=== PATIENT | female | born 1995 | race Caucasian/White ===

== ENCOUNTER → 2019-09-07 | Outpatient (CLI) | payer OTHER ==
[2019-09-07 12:57] LABS: Basophils % (A) 1 %; Eosinophils % (A) 1 %; HCT 41.8 % (34.0-46.0); HGB 13.7 gm/dL (11.4-16.0); Lymphocytes % (A) 39 %; MCH 28.9 pg (25.0-35.0); MCHC 32.9 g/dL (31.0-37.0); MCV 87.9 fL (80.0-100.0); Mean Platelet Volume 7.6; Monocytes # (A) 0.3 k/uL (0-1.0); Monocytes % (A) 6 %; Neutrophils # (A) 2.7 k/uL (1.3-7.7); Neutrophils % (A) 52 %; Platelet Count 205 k/uL (150-450); RBC 4.75 m/uL (3.80-5.40); RDW 12.2 % (11.5-15.5); WBC 5.2 k/uL (3.8-10.6)
== END | disposition home or self-care (01) ==
LOC: LABWHC1 11:43
PROVIDERS: ATTEND Obstetrics & Gynecology Obstetrics
DX: Z01.818 Encounter for other preprocedural examination (principal); Q52.3 Imperforate hymen
CPT/HCPCS: 85025

== ENCOUNTER → 2019-10-02 | Day surgery (SDC) | payer OTHER ==
[2019-09-25 15:51] VITALS: BMI 19.4
[~2019-10-02] MED LIST: DEXAMETHASONE SOD PHOSPHATE 10 MG/ML 1 ML VIAL IV ONE; ESTROGENS, CONJUGATED 0.625 MG/GM VAGINAL CREAM 42.5 GM TUBE VAGINAL ONE; HYDROmorphone 0.5 MG/0.5 ML SYRINGE IVP PRN; KETOROLAC 30 MG/ML 1 ML VIAL ONE; LACTATED RINGERS 1,000 ML IV SCH; LIDOCAINE 1% (10MG/ML) FOR IV START INTRADERMA ONE; LIDOCAINE 1% INJ 10MG/ML (20 ML MDV) ONE; MIDAZOLAM 2 MG/2 ML VIAL IV PRN; MIDAZOLAM 2 MG/2 ML VIAL ONE; ONDANSETRON 4 MG/2 ML VIAL IVP ONE; ONDANSETRON 4 MG/2 ML VIAL ONE; PROPOFOL 10 MG/ML 20 ML VIAL IV ONE; Pre Op ABX Message 1 EACH MISC MISCELLANE ONE; SCOPOLAMINE 1.5MG/72HR PATCH TRANSDERM ONE; SILVER NITRATE APPLICATOR 1 EACH STICK..EA. TOPICAL ONE; fentaNYL (PF) 50 MCG/ML 2 ML AMP ONE
--- NOTE | 2019-10-02 09:36 | P.OP ---
Date of Procedure: 10/02/19 Preoperative Diagnosis: Hymenal defect Postoperative Diagnosis: Same Procedure(s) Performed: Hymenectomy, exam under anesthesia, Pap smear Anesthesia: MAC Surgeon: Annamarie Das Estimated Blood Loss (ml): 5 IV fluids (ml): 200 Urine output (ml): 50 Pathology: none sent Condition: stable Disposition: PACU Indications for Procedure: Hymenal defect, inability to have intercourse, place tampon in vagina Operative Findings: Hymenal defect just below urethra to left vaginal sidewall. Normal vaginal mucosa is noted, cervix appears healthy with no lesions or masses. Description of Procedure: Patient is seen in the preoperative area surgery is reviewed once again and questions are answered. Patient taken back to the operating suite where general anesthesia was obtained without difficulty by the anesthesia department. She is prepped and draped in the normal sterile fashion in the dorsal lithotomy position. Red rubber catheter was used to drain the bladder of clear yellow urine. The hymenal defect was identified and grasped with Allis clamps it is transected with Metzenbaum scissors speculum was then placed and a Pap smear was obtained. The vaginal mucosa was noted to be pink and well rugated. The lateral vaginal attachement site was then closed with 3-0 Rapide in a running locked fashion. [id number] suture was used to close the anterior site. Hemostasis was appreciated. Primary cream was placed over both sites. All counts reported to be correct 2, patient tolerated procedure well.
[2019-10-02 09:48] VITALS: TEMP 97.6
[2019-10-02 10:43] VITALS: RESP 20
[2019-10-02 10:46] VITALS: BP 101/53; PULSE 53
== END ==
LOC: OR 07:39
PROVIDERS: ATTEND Obstetrics & Gynecology Obstetrics
DX: Q52.3 Imperforate hymen (principal); K59.00 Constipation, unspecified; Z98.818 Other dental procedure status; Z82.3 Family history of stroke
CPT/HCPCS: 81025; 56700; J2250; J1100; J2405; J2001; J3010; J1885; J2704

== ENCOUNTER → 2021-04-08 | Outpatient (CLI) | payer OTHER ==
--- NOTE | 2021-04-08 10:55 | USB ---
Reason for exam: clinical finding. Physical Findings: Nurse Summary: increased density and nodularity at areas of concern (nurse db). US Breast Limited BILAT Right limited breast ultrasound including focal area of concern, retroareolar and axilla demonstrates a 1.2 x 1.4 x 0.6cm solid, hypoechoic lesion at 10 o'clock and a 1.3 x 0.8 x 0.5cm, cortex 0.2cm normal lymph node at the axilla. Left limited breast ultrasound including focal area of concern, retroareolar and axilla demonstrates a 1.6 x 1.7 x 1.2cm solid, hypoechoic lesion at 10 o'clock. Both lesions show posterior thru transmission, fibroadenomas are suspected. Scanned right breast 9-12 o'clock and left breast 9-12 o'clock. These results were verbally communicated with the patient and result sheet given to the patient on 04/08/21. ASSESSMENT: Suspicious, BI-RAD 4 RECOMMENDATION: Ultrasound core biopsy of both breasts. Called Dr. Rios's office with mammographic findings and has scheduled an appointment for the patient for 05/16/21 at 2:[address] Garcia. Biopsy scheduled for 05/19/21 at 1:00. PRELIMINARY REPORT CALLED AND FAXED TO DR. GARCIA ON 04/08/21.
== END | disposition home or self-care (01) ==
LOC: RADUSWWP 09:30
PROVIDERS: ATTEND Family Medicine
DX: N63.0 Unspecified lump in unspecified breast (principal)

== ENCOUNTER → 2021-05-16 | Outpatient (CLI) | payer OTHER ==
[2021-05-16 14:08] VITALS: BP 124/76; PULSE 88; RESP 16; TEMP 98.6
--- NOTE | 2021-05-16 14:37 | P.GSHP ---
History of Present Illness H&P Date: 05/16/21 Chief Complaint: bilateral abnormal ultrasound of the breast Kiara is a 25 year old white female seen in consultation for Dr. aDs bilateral breast lumps. She noticed a fullness in her breast which led to the ultrasound. She underwent a bilateral breast ultrasound on . This revealed in the right breast a 1.4 x 1.2 cm solid lesion at 10:00 and in the left breast a 1.6 x 1.7 cm solid lesion at 10:00. These are tender with palpation. These change in size with her period. She has not noted any nipple discharge skin changes or other lesions or masses in her breast. She's never had any surgery on her breast. She is not complaining of any recent trauma or infection of the breast. Caffeine:none nicotine: none chocolate: daily BCP: never used hormones: none Family history: Paternal grandmother; ovarian cancer, leukemia Paternal aunt: colon cancer maternal grandfather: throat cancer Hormonal History: menarche: 14 G0; not sexually active BCP: none periods regular Surgical History: hymenectomy Medical History: None Social history: nicotine: negative Alcohol: Negative Drugs: Negative - Constitutional Constitutional: Denies chills, Denies fever - EENT Eyes: denies blurred vision, denies pain Ears: bilateral: tinnitus, deny: decreased hearing Ears, nose, mouth and throat: Denies headache, Denies sore throat - Breasts Breasts: bilateral: as per HPI - Cardiovascular Cardiovascular: Reports chest pain, Denies shortness of breath - Respiratory Respiratory: Denies cough, Denies 7 - Gastrointestinal Gastrointestinal: Denies abdominal pain, Denies diarrhea, Denies nausea, Denies vomiting - Genitourinary (Female) Genitourinary: Denies dysuria, Denies hematuria - Menstruation Menstruation: Reports period normal - Musculoskeletal Musculoskeletal: Denies myalgias - Integumentary Comment: eczema on arm Integumentary: Denies pruritus - Neurological Neurological: Denies numbness, Denies weakness - Psychiatric Psychiatric: Denies anxiety, Denies depression - Endocrine Endocrine: Denies fatigue, Denies weight change - Hematologic/Lymphatic Comment: none - Allergic/Immunologic Comment: none Past Medical History Past Medical History: No Reported History History of Any Multi-Drug Resistant Organisms: None Reported Past Surgical History: No Surgical Hx Reported Additional Past Surgical History / Comment(s): [place] Teeth Extracted. Past Anesthesia/Blood Transfusion Reactions: No Reported Reaction Past Psychological History: No Psychological Hx Reported Smoking Status: Never smoker Past Alcohol Use History: None Reported Past Drug Use History: None Reported - Past Family History Mother Family Medical History: No Reported History Medications and Allergies Home Medications Medication Instructions Recorded Confirmed Type No Known Home Medications 09/25/19 05/16/21 History Allergies Allergy/AdvReac Type Severity Reaction Status Date / Time No Known Allergies Allergy Verified 05/16/21 14:03 Surgical - Exam Vital Signs Temp Pulse Resp BP Pulse Ox 98.6 F 88 16 124/76 99 05/16/21 14:04 05/16/21 14:04 05/16/21 14:04 05/16/21 14:04 05/16/21 14:04 BMI 22.1 - General no distress - Eyes normal ocular movement - ENT no hearing loss - Neck trachea midline - Respiratory normal respiratory effort, clear to auscultation - Cardiovascular Rhythm: regular Heart Sounds: normal: S1, S2 - Abdomen Abdomen: soft - Integumentary normal turgor - Neurologic no disoriented, no combative - Musculoskeletal normal gait - Psychiatric oriented to time, oriented to person, oriented to place, speech is normal, memory intact Breast Exam: BRA: 32A inspection: Bilateral grade 1 ptosis Palpation: Right breast: Multiple positional exam 10 o'clock position approximately 2 cm nodularity consistent with what is reported on ultrasound Right axilla: No adenopathy of concern Left breast: Multiple positional exam approximately 10 o'clock to 12:00 position 2:00 area of nodularity consistent with what is seen on ultrasound Left axilla: No adenopathy of concern Results Ultrasound report reviewed Assessment and Plan Assessment: Impression: Bilateral solid masses on ultrasound consistent with palpable lesions Plan: Bilateral ultrasound core biopsy in follow-up after this This is most likely consistent with fibroadenoma Cc: Dr. Das Risks and benefits of the procedure discussed with the patient she understands and wishes to proceed
== END ==
LOC: WWCWWP 13:52
PROVIDERS: ATTEND Surgery
DX: N63.11 Unspecified lump in the right breast, upper outer quadrant (principal); N63.21 Unspecified lump in the left breast, upper outer quadrant

== ENCOUNTER → 2021-05-29 | Outpatient (CLI) | payer OTHER ==
[2021-05-29 09:23] VITALS: BP 115/77; PULSE 84; RESP 16; TEMP 98.1
--- NOTE | 2021-05-29 10:09 | P.PN ---
Subjective Progress Note Date: 05/29/21 Principal diagnosis: bilateral fibroadenomas Kiara is a 25 year old white female seen in consultation for Dr. Das bilateral breast lumps. She noticed a fullness in her breast which led to the ultrasound. She underwent a bilateral breast ultrasound on . This revealed in the right breast a 1.4 x 1.2 cm solid lesion at 10:00 and in the left breast a 1.6 x 1.7 cm solid lesion at 10:00. These are tender with palpation. These change in size with her period. She has not noted any nipple discharge skin changes or other lesions or masses in her breast. She's never had any surgery on her breast. She is not complaining of any recent trauma or infection of the breast. The patient on 05-19-21 underwent a bilateral breast core biopsy which was + for bilateral fibroadenomas. Caffeine:none nicotine: none chocolate: daily BCP: never used hormones: none Family history: Paternal grandmother; ovarian cancer, leukemia Paternal aunt: colon cancer maternal grandfather: throat cancer Hormonal History: menarche: 14 G0; not sexually active; BCP: none periods regular Surgical History: hymenectomy Medical History: None Social history: nicotine: negative Alcohol: Negative Drugs: Negative - Constitutional Constitutional: Denies chills, Denies fever - EENT Eyes: denies blurred vision, denies pain Ears: bilateral: tinnitus, deny: decreased hearing Ears, nose, mouth and throat: Denies headache, Denies sore throat - Breasts Breasts: bilateral: as per HPI - Cardiovascular Cardiovascular: Reports chest pain, Denies shortness of breath - Respiratory Respiratory: Denies cough - Gastrointestinal Gastrointestinal: Denies abdominal pain, Denies diarrhea, Denies nausea, Denies vomiting - Genitourinary (Female) Genitourinary: Denies dysuria, Denies hematuria - Menstruation Menstruation: Reports period normal - Musculoskeletal Musculoskeletal: Denies myalgias - Integumentary Comment: eczema on arm Integumentary: Denies pruritus - Neurological Neurological: Denies numbness, Denies weakness - Psychiatric Psychiatric: Denies anxiety, Denies depression - Endocrine Endocrine: Denies fatigue, Denies weight change - Hematologic/Lymphatic Comment: none - Allergic/Immunologic Comment: none Objective - Vital Signs Vital signs: Vital Signs Temp 98.1 F 05/29/21 09:20 Pulse 84 05/29/21 09:20 Resp 16 05/29/21 09:20 BP 115/77 05/29/21 09:20 Pulse Ox 97 05/29/21 09:20 Intake & Output 05/28/21 05/29/21 05/29/21 18:59 06:59 18:59 Weight 52.163 kg - Constitutional General appearance: Present: cooperative - EENT Eyes: Present: EOMI - Neck Neck: Present: normal ROM - Respiratory Respiratory: bilateral: CTA - Cardiovascular Heart sounds: normal: S1, S2 - Integumentary Integumentary Comment(s): Biopsy sites: bilateral breast mild ecchymosis no hematomas - Musculoskeletal Musculoskeletal: Present: gait normal - Psychiatric Psychiatric: Present: A&O x's 3, appropriate affect, intact judgment & insight - Additional findings Additional findings: Breast examination: Bilateral biopsy sites mild ecchymosis clean and dry no evidence of infection Assessment and Plan Assessment: Impression: bilateral fibroadenomas Plan: After discussion with the patient the patient wishes these to be followed conservatively, but would like to be seen in 3 months. She understands that they may increase in size and if this happens she will contact us sooner. Otherwise we'll do a repeat exam in 3 months, and an ultrasound of both sites in 6 months to assure that these are not increasing in size. CC: DR. Das
== END ==
LOC: WWCWWP 09:12
PROVIDERS: ATTEND Surgery
DX: D24.1 Benign neoplasm of right breast (principal); D24.2 Benign neoplasm of left breast

== ENCOUNTER → 2021-11-20 | Outpatient (CLI) | payer OTHER ==
--- NOTE | 2021-11-20 09:38 | USB ---
Reason for Exam: Follow-up at short interval from prior study. Patient History: 05/19/2021, Benign Core Biopsy on the left side. 05/19/2021, Benign Core Biopsy on the right side. Technique: Method: Targeted. Findings: The upper outer quadrant of the right breast, the upper inner quadrant of the left breast and the axilla of both breasts were scanned. An ultrasound of the right breast was performed at 10:00 and of the axillary tail. There is a solid hypoechoic lesion measuring 1.4 x 0.8 x 1.4 cm at 10:00 4 cm from the nipple with posterior acoustic transmission and recently biopsy representing a fibroadenoma. This is not changed from prior examination. Ultrasound left breast was performed at 10:00 and of the x-ray table. There is a solid hypoechoic lesion measuring 1.5 x 1.1 x 1.5 cm at 10:00 3 cm from the nipple with posterior acoustic transmission and previously biopsied representing a fibroadenoma. This is not changed from prior examination. Overall Assessment: Benign, BI-RAD 2 Management: Screening Mammogram of both breasts at age 41. A clinical breast exam by your physician is recommended on an annual basis and results should be correlated with mammographic findings. Electronically signed and approved by: Travon Das D.O.
== END | disposition home or self-care (01) ==
LOC: RADUSWWP 09:04
PROVIDERS: ATTEND Surgery
DX: R92.8 Other abnormal and inconclusive findings on diagnostic imaging of breast (principal)

== ENCOUNTER → 2021-11-27 | Outpatient (CLI) | payer OTHER ==
--- NOTE | 2021-11-27 09:50 | P.PN ---
Subjective Progress Note Date: 11/27/21 Principal diagnosis: bilateral fibroadenoma Progress Note Date: 05/29/21 Principal diagnosis: bilateral fibroadenomas Kiara is a 26 year old white female seen in consultation for Dr. Das with bilateral breast lumps. She noticed a fullness in her breast which led to an ultrasound. She underwent a bilateral breast ultrasound on . This revealed in the right breast a 1.4 x 1.2 cm solid lesion at 10:00 and in the l eft breast a 1.6 x 1.7 cm solid lesion at 10:00. These are tender with palpation. These change in size with her period. She has not noted any nipple discharge skin changes or other lesions or masses in her breast. She's never had any surgery on her breast. She is not complaining of any recent trauma or infection of the breast. The patient on 05-19-21 underwent a bilateral breast core biopsy which was + for bilateral fibroadenomas. She had a bilateral ultrasound done on 11-20-21. right breast: 1.4 by 1.4 leesion at 10 OClock prior 1.4 by 1.2 cm lesion left breast: 1.5 by 1.5 Cm lesion at 10 Oclock prior 1.6 by 1.7 cm lesion Patient is not noting any changes in her breast. The lesions become tender right before her period. She has not noted any real changes in size. Caffeine:none nicotine: none chocolate: daily BCP: never used hormones: none Family history: Paternal grandmother; ovarian cancer, leukemia Paternal aunt: colon cancer maternal grandfather: throat cancer Hormonal History: menarche: 14 G0; not sexually active; BCP: none periods regular Surgical History: hymenectomy Medical History: None Social history: nicotine: negative Alcohol: Negative Drugs: Negative - Constitutional Constitutional: Denies chills, Denies fever - EENT Eyes: denies blurred vision, denies pain Ears: bilateral: tinnitus, deny: decreased hearing Ears, nose, mouth and throat: Denies headache, Denies sore throat - Breasts Breasts: bilateral: as per HPI - Cardiovascular Cardiovascular: Reports chest pain, Denies shortness of breath - Respiratory Respiratory: Denies cough - Gastrointestinal Gastrointestinal: Denies abdominal pain, Denies diarrhea, Denies nausea, Denies vomiting - Genitourinary (Female) Genitourinary: Denies dysuria, Denies hematuria - Menstruation Menstruation: Reports period normal - Musculoskeletal Musculoskeletal: Denies myalgias - Integumentary Comment: eczema on arm Integumentary: Denies pruritus - Neurological Neurological: Denies numbness, Denies weakness - Psychiatric Psychiatric: Denies anxiety, Denies depression - Endocrine Endocrine: Denies fatigue, Denies weight change - Hematologic/Lymphatic Comment: none - Allergic/Immunologic Comment: none Objective - Vital Signs Vital signs: Intake & Output 11/26/21 11/27/21 11/27/21 18:59 06:59 18:59 Weight 52.163 kg - Exam BMI: 21 - Constitutional General appearance: Present: cooperative - EENT Eyes: Present: EOMI ENT: Present: hearing grossly normal - Neck Neck: Present: normal ROM - Respiratory Respiratory: bilateral: CTA - Cardiovascular Rhythm: regular Heart sounds: normal: S1, S2 - Gastrointestinal General gastrointestinal: Present: soft - Integumentary Integumentary: Present: normal turgor - Musculoskeletal Musculoskeletal: Present: gait normal - Psychiatric Psychiatric: Present: A&O x's 3, appropriate affect, intact judgment & insight - Additional findings Additional findings: Breast Exam: BRA: 32A Inspection: bilateral grade 1 ptosis Palpation: Right breast: Multi-positional exam At the 10 o'clock position there is some increased nodularity consistent with a fibroadenoma,. Dense breast, fibrocystic changes, no other dominant masses or nodules of concern Right axilla: No adenopathy of concern Left breast: Multi-positional exam very dense fibrocystic breast changes, at the 10 o'clock position findings consistent with a fibroadenoma Left axilla: No adenopathy of concern Assessment and Plan Assessment: Impression: Bilateral breast fibroadenomas biopsy-proven/stable Fibrocystic breast changes Plan: Bilateral ultrasound in 6 months with physician exam at that time If these change prior to that the patient will call us sooner Cc: Dr. Das, Dr. Rios
[2021-11-27 10:14] VITALS: BP 117/71; PULSE 82; RESP 16; TEMP 98.6
== END ==
LOC: WWCWWP 08:58
PROVIDERS: ATTEND Surgery
DX: N60.11 Diffuse cystic mastopathy of right breast (principal); N60.12 Diffuse cystic mastopathy of left breast; E66.9 Obesity, unspecified; Z68.21 Body mass index [BMI] 21.0-21.9, adult

== ENCOUNTER → 2022-05-25 | Outpatient (CLI) | payer OTHER ==
--- NOTE | 2022-05-25 09:19 | USB ---
Reason for Exam: Clinical finding. Patient History: 05/19/2021, Benign Core Biopsy on the left side. 05/19/2021, Benign Core Biopsy on the right side. Technique: Method: Targeted. Findings: The lateral section of the breast of both breasts and the axilla of both breasts were scanned. Again noted are biopsy proven fibroadenomas at the right 10:00 position measuring 1.4 x 1.5 x 2.7 cm 4 cm from the nipple and 1.6 x 1.0 cm at the left 10:00 position 3 cm from the nipple. No new masses are seen. Overall no significant change.. Overall Assessment: Benign, BI-RAD 2 Management: Screening Mammogram of both breasts at age 41. A clinical breast exam by your physician is recommended on an annual basis and results should be correlated with mammographic findings. This exam should not preclude additional follow-up of suspicious palpable abnormalities. Results were given to the patient verbally at the time of exam. Electronically signed and approved by: Rigo Meza M.D. Radiologis
== END | disposition home or self-care (01) ==
LOC: RADUSWWP 08:33
PROVIDERS: ATTEND Surgery
DX: N63.10 Unspecified lump in the right breast, unspecified quadrant (principal)

== ENCOUNTER → 2022-05-29 | Outpatient (CLI) | payer OTHER ==
[2022-05-29 10:02] VITALS: BP 115/81; PULSE 76; RESP 16; TEMP 97.6
--- NOTE | 2022-05-29 10:47 | P.PN ---
Subjective Progress Note Date: 05/29/22 Principal diagnosis: bilateral breast fibroadenoma bilateral fibroadenomas Kiara is a 26 year old white female seen in consultation for Dr. Das with bilateral breast lumps. She noticed a fullness in her breast which led to an ultrasound. She underwent a bilateral breast ultrasound on . This revealed in the right breast a 1.4 x 1.2 cm solid lesion at 10:00 and in the left breast a 1.6 x 1.7 cm solid lesion at 10:00. These are tender with palpation. These change in size with her period. She has not noted any nipple discharge skin changes or other lesions or masses in her breast. She's never had any surgery on her breast. She is not complaining of any recent trauma or infection of the breast. The patient on 05-19-21 underwent a bilateral breast core biopsy which was + for bilateral fibroadenomas. She had a bilateral ultrasound done on 11-20-21. right breast: 1.4 by 1.4 lesion at 10 OClock prior 1.4 by 1.2 cm lesion left breast: 1.5 by 1.5 Cm lesion at 10 Oclock prior 1.6 by 1.7 cm lesion Patient is not noting any changes in her breast. The lesions become tender right before her period. She has not noted any real changes in size. 06-08-22 The patient underwent on ultrasound of the breast. She was noted to have at the 10 o'clock position of the right breast a 1.5 x 2.7 cm fibroadenoma. On the right has increased in size. and of the left breast a 1.6 x 1 cm lesion She does not feel any changes in her breast. Caffeine:none nicotine: none chocolate: daily BCP: never used hormones: none Family history: Paternal grandmother; ovarian cancer, leukemia Paternal aunt: colon cancer maternal grandfather: throat cancer Hormonal History: menarche: 14 G0; not sexually active; BCP: none periods regular Surgical History: hymenectomy Medical History: None Social history: nicotine: negative Alcohol: Negative Drugs: Negative - Constitutional Constitutional: Denies chills, Denies fever - EENT Eyes: denies blurred vision, denies pain Ears: bilateral: tinnitus, deny: decreased hearing Ears, nose, mouth and throat: Denies headache, Denies sore throat - Breasts Breasts: bilateral: as per HPI - Cardiovascular Cardiovascular: Reports chest pain, Denies shortness of breath - Respiratory Respiratory: Denies cough - Gastrointestinal Gastrointestinal: Denies abdominal pain, Denies diarrhea, Denies nausea, Denies vomiting - Genitourinary (Female) Genitourinary: Denies dysuria, Denies hematuria - Menstruation Menstruation: Reports period normal - Musculoskeletal Musculoskeletal: Denies myalgias - Integumentary Comment: eczema on arm Integumentary: Denies pruritus - Neurological Neurological: Denies numbness, Denies weakness - Psychiatric Psychiatric: Denies anxiety, Denies depression - Endocrine Endocrine: Denies fatigue, Denies weight change - Hematologic/Lymphatic Comment: none - Allergic/Immunologic Comment: none Objective - Vital Signs Vital signs: Vital Signs Temp 97.6 F 05/29/22 10:00 Pulse 76 05/29/22 10:00 Resp 16 05/29/22 10:00 BP 115/81 05/29/22 10:00 Pulse Ox 100 05/29/22 10:00 FiO2 Intake & Output 05/28/22 05/29/22 05/29/22 18:59 06:59 18:59 Weight 52.163 kg - Constitutional General appearance: Present: cooperative - EENT Eyes: Present: EOMI ENT: Present: hearing grossly normal - Neck Neck: Present: normal ROM - Respiratory Respiratory: bilateral: CTA - Cardiovascular Rhythm: regular Heart sounds: normal: S1, S2 - Gastrointestinal General gastrointestinal: Present: soft - Integumentary Integumentary: Present: normal turgor - Musculoskeletal Musculoskeletal: Present: gait normal - Psychiatric Psychiatric: Present: A&O x's 3, appropriate affect, intact judgment & insight - Additional findings Additional findings: Breast Exam: BRA: 32A Inspection: bilateral grade 1 ptosis Palpation: Right breast: Multi-positional exam At the 10 o'clock position there is some increased nodularity consistent with a fibroadenoma,. Dense breast, fibrocystic changes, no other dominant masses or nodules of concern Right axilla: No adenopathy of concern Left breast: Multi-positional exam very dense fibrocystic breast changes, at the 10 o'clock position findings consistent with a fibroadenoma Left axilla: No adenopathy of concern Assessment and Plan Assessment: Impression: Bilateral breast fibroadenomas biopsy-proven/right side increased in size Fibrocystic breast changes Plan: Would recommended needle localization and excision of fibroadenoma right breast as this has increased to 2.7 cm in size from 1.4 cm Needle localization excision of growing fibroadenoma right breast, possible onco-palstic tissue transfer Risk of the surgery includes but is not limited to bleeding, infection, reaction to the anesthetic. The patient understands and wishes to proceed. Cc: Dr. Das, Dr. Rios
== END ==
LOC: WWCWWP 09:46
PROVIDERS: ATTEND Surgery
DX: N60.12 Diffuse cystic mastopathy of left breast (principal); D24.1 Benign neoplasm of right breast; D24.2 Benign neoplasm of left breast; Z80.0 Family history of malignant neoplasm of digestive organs; Z80.41 Family history of malignant neoplasm of ovary; Z80.1 Family history of malignant neoplasm of trachea, bronchus and lung

== ENCOUNTER → 2023-01-12 | Outpatient (CLI) | payer OTHER ==
--- NOTE | 2023-01-12 22:10 | MR ---
EXAMINATION TYPE: MR brain wo/w con DATE OF EXAM: 01/12/2023 4:02 PM CLINICAL INDICATION:Female, 27 years old with history of G43.109 MIGRAINE WITH AURA; PHH, Migraines, left side. Visual disturbance. COMPARISON: None TECHNIQUE: Multi planar, multi sequence imaging was performed through the brain including: T1, T2, In version recovery, susceptibility weighted imaging and gradient echo imaging and Diffusion weighted im aging. The patient was then given intravenous contrast and multi planar, T1 fat-saturation images wer e obtained. IV Contrast: 5 cc Gadavist FINDINGS: The damon-white junctions, ventricular system, basal cisterns appear unremarkable. Diffusion-weighted imaging shows no evidence of restricted diffusion to suggest acute/subacute infarct. Intracranial ar terial flow voids are maintained. Midline structures show no abnormality. The susceptibility weighted images do not reveal any evidence for micro-hemorrhage. After administration of gadolinium, no abnor mal enhancement is seen. The bone marrow signal is within normal limits. Paranasal sinuses and mastoid air cells: No significant paranasal sinus disease. Visualized orbits: Orbital contents are intact. IMPRESSION: No evidence of intracranial mass, acute/subacute infarct, or abnormal enhancement.
== END | disposition home or self-care (01) ==
LOC: RADMRIMAIN 15:10
PROVIDERS: ATTEND Family Medicine
DX: G43.109 Migraine with aura, not intractable, without status migrainosus (principal); H53.9 Unspecified visual disturbance
CPT/HCPCS: 70553; A9585

== ENCOUNTER → 2024-09-06 | Outpatient (CLI) | payer OTHER ==
[2024-09-06 15:50] LABS: HCT 42.9 % (37.2-46.3); HGB 13.7 g/dL (12.0-15.0); MCH 27.9 pg (27.0-32.0); MCHC 31.9 g/dL (32.0-37.0); MCV 87.4 FL (80.0-97.0); NRBC Per 100 WBC 0 X 10*3/uL (0.00-0.01); Platelet Count 189 X 10*3/uL (140-440); RBC 4.91 X 10*6/uL (4.10-5.20); RDW 13.8 % (11.5-14.5); WBC 5.33 X 10*3/uL (4.50-10.00)
[2024-09-06 16:07] LABS: ALT 14 U/L (8-44); AST 19 U/L (13-35); Albumin 4.6 g/dL (3.8-4.9); Albumin/Globulin Ratio 1.84 Ratio (1.60-3.17); Alkaline Phosphatase 55 U/L (41-126); Anion Gap 13.20 mmol/L (4.00-12.00); BUN/Creat Ratio 14.00 Ratio (12.00-20.00); Blood Urea Nitrogen 9.8 mg/dL (9.0-27.0); Calcium 9.0 mg/dL (8.7-10.3); Carbon Dioxide 21.8 mmol/L (21.6-31.8); Chloride 105 mmol/L (96-109); Globulin 2.5 g/dL (1.6-3.3); Glucose 91 mg/dL (70-110); Potassium 3.9 mmol/L (3.5-5.5); Sodium 140 mmol/L (135-145); T4, Free (Free Thyroxine) 1.12 ng/dL (0.80-1.80); Total Protein 7.1 g/dL (6.2-8.2)
== END | disposition home or self-care (01) ==
LOC: LABWHC1 11:50
DX: J02.9 Acute pharyngitis, unspecified (principal); Z86.19 Personal history of other infectious and parasitic diseases; Z86.39 Personal history of other endocrine, nutritional and metabolic disease
CPT/HCPCS: 36415; 80053; 84439; 84443; 84480; 85027; 86663